=== PATIENT | female | born 1990 ===

== ENCOUNTER 2017-07-31 02:41 | Inpatient (IN) | payer MEDICAID, SELFPAY ==
[2017-07-31 03:20] VITALS: BMI 22.3
--- NOTE | 2017-07-31 03:36 | OBADHP ---
Datetime: 07/31/2017 03:32 Admit Comment, IP Provider: 27-year-old at 35 weeks gestational age presents to OB ED compla ining of contractions. Patient denies any vaginal bleeding or leakage of fluids. Patient reports good movement. No records available for review at this time. Patient reports first deliver y at 29 weeks due to labor. Past medical history none Past surgical history none Medications vitamins No known drug allergies Obstetrical history vaginal delivery at 29 weeks gestational age due to labor Social history no tobacco, drugs, no alcohol Physical exam: Referred physical exam findings Assessment: 27-year-old at 35 weeks gestational age in labor. heart tracing reassuring at this time. Plan: Admit to labor and delivery for management of labor IV fluid hydration IV penicillin G for GBS prophylaxis Betamethasone Discussed plan with patient and all patient questions answered. Pelvic Type - PN: Adequate Extremities - PN: Normal Abdomen - PN: Normal Back - PN: Normal Breast - PN: Normal Lungs - PN: Normal Heart - PN: Normal Thyroid - PN: Normal Neurologic - PN: Normal HEENT - PN: Normal General - PN: Normal FHR - Baseline A Provider: 150s Contraction Comments Provider: q2min Comments, ACOG Physical Exam: Bedside ultrasound: Cephalic presentation Vital Signs Provider: Reviewed; Within Normal Limits IP Chief Complaint: Uterine contractions NICHD Variability Prov Fetus A: Moderate 6-25bpm FHR Category Provider Fetus A: Category I NICHD Decel Fetus A IP Provider: None Dilatation, Provider: 1 Effacement, Provider: 90 Station, Provider: -1 Genitourinary Exam: Normal DTRs - PN: Normal EGA AdmitDate IP: 35.0 IP Adm Impression: , intrauterine ; Active labor; Intact Membranes IP Admit Plan: Admit to unit; Initiate labor protocol
[2017-07-31] MEDS ORDERED: Betamethasone Soluspan 30 mg/5mL Inj Susp IM PRN (03:49)
[2017-07-31] MEDS ORDERED: Lactated Ringer's 1,000 ML IV PRN (03:49)
[2017-07-31] MEDS ORDERED: Penicillin G Potassium 5 MU in Sodium Chloride 0.9% 50 ML IVPB ONE (04:00)
[2017-07-31] MEDS: Lactated Ringer's 1,000 ML IV PRN ×2 (04:00→04:30)
[2017-07-31 04:25] LABS: BASO # 0.1 K/uL (0.0-0.2); BASO % 0.6 % (0.0-2.0); EOS # 0.3 K/uL (0.0-0.7); EOS % 2.4 % (0.0-4.0); HEMATOCRIT 36.5 % (34.0-47.0); LYMPH # 2.3 K/uL (1.0-4.3); LYMPH % 21.8 % (20.0-40.0); MEAN CELL VOLUME 87.4 fl (81.0-99.0); MEAN CORPUSCULAR HEMOGLOBIN 30.7 pg (27.0-31.0); MEAN CORPUSCULAR HGB CONC 35.1 g/dL (33.0-37.0); MEAN PLATELET VOLUME 8.2 fl (7.2-11.7); MONO # 1.2 K/uL (0.0-0.8); MONO % 11.2 % (0.0-10.0); NEUT # 6.9 K/uL (1.8-7.0); NRBC % 0.1 % (0.0-0.0); RED CELL DISTRIBUTION WIDTH 14.2 % (11.5-14.5); WHITE BLOOD COUNT 10.7 K/uL (4.8-10.8)
[2017-07-31] MEDS ORDERED: Lactated Ringer's 1,000 ML IV SCH (04:30)
[2017-07-31 04:32] LABS: RBC URINE 4 /hpf (0-3); URINE BACTERIA RARE (<OCC); URINE BILIRUBIN NEGATIVE (NEGATIVE); URINE BLOOD MODERATE (NEGATIVE); URINE COLOR YELLOW (YELLOW); URINE GLUCOSE (UA) NEG (Normal); URINE KETONE NEGATIVE (NEGATIVE); URINE LEUKOCYTE ESTERASE SMALL Leu/uL (Negative); URINE PROTEIN NEGATIVE (NEGATIVE); URINE UROBILINOGEN 0.2-1.0 mg/dL (0.2-1.0); WBC URINE 4 /hpf (0-5)
[2017-07-31 04:38] LABS: ALKALINE PHOSPHATASE 330 U/L (38-126); ALT/SGPT 201 U/L (9-52); AST/SGOT 141 U/L (14-36); BLOOD UREA NITROGEN 14 mg/dl (7-17); CALCIUM 9.3 mg/dL (8.4-10.2); CARBON DIOXIDE 22 mmol/L (22-30); CHLORIDE 107 mmol/L (98-107); GFR AFRICAN-AMERICAN > 60; GLUCOSE,RANDOM 103 mg/dL (65-105); SODIUM 141 mmol/l (132-148); TOTAL PROTEIN 7.7 G/DL (6.3-8.2)
[2017-07-31] MEDS ORDERED: Fentanyl/Bupivacaine HCl 250 ML EPI ONE (05:04)
[2017-07-31] MEDS ORDERED: Bupivacaine HCl 0.25% PF (10 ml) Inj ONE (07:17)
[2017-07-31] MEDS ORDERED: Lidocaine 1% Inj (20ml) ONE (07:23)
[2017-07-31] MEDS ORDERED: Oxycodone/Acetaminophen 5/325 mg Tab PO PRN ×3 (09:31→13:02)
--- NOTE | 2017-07-31 10:11 | OBDS ---
DELIVERY PERSONNEL Delivery Doctor: Kaylynn Perez MD W[employer] Rack Operator: Antonette Ryan RN /ricki wells rn Anesthetist: meme Resident: jayne guerrero MATERNAL INFORMATION Delivery Anesthesia: Local; Epidural Medications in Delivery: pitocin after placenta Estimated Blood Loss (ml): 200 Placenta Cultured: No/ placenta to pathology Other Maternal Complications: 35 weeks Provider Comments: Normal spontaneous vaginal delivery. Patient delivered viable infant with Apgars of 9 and 9 at one and 5 minutes respectively. d elivered via IRAIS position, loose nuchal cord 1. Laceration repaired, as above. Placenta delivered s pontaneously. Placenta sent for pathology. Cord gases sent. Patient tolerated delivery and repair wel l. No complications. Candy Bar Attendant present at delivery. Estimated blood loss 200 mL LABOR SUMMARY EDC: 09/04/2017 00:00 No. Babies in Womb: 1 Attempted: No LABOR INFORMATION Onset of Labor: 07/30/2017 19:00 Complete Dilatation: 07/31/2017 09:00 Oxytocin: N/A Group B Beta Strep: Not Done Antibiotics # of Doses: pen G 5 MU/PEN G AT 5:08 AM 2.5 08:00 AM Antibiotics Time of Last Dose: 08:00 AM PEN G 2.5 Steroids Given: None MEMBRANES Membranes Rupture Method: Spontaneous Rupture of Membranes: 07/31/2017 07:00 Length of Rupture (hrs): 2.25 Amniotic Fluid Color: Light Meconium Amniotic Fluid Amount: Small Amniotic Fluid Odor: Normal STAGES OF LABOR Stage 1 hrs: 14 Stage 1 min: 0 Stage 2 hrs: 0 Stage 2 min: 15 Stage 3 hrs: 0 Stage 3 min: 4 Total Time in Labor hrs: 14 Total Time in Labor min: 19 VAGINAL DELIVERY Episiotomy: None Laceration Extension: Second Degree Laceration Type: Perineal Laceration Repair Note: Second-degree midline perineal laceration. Area infiltrated with 1% lidocain e. Laceration repaired with 2. 0 repeat without complication. Patient tolerated the repair well. Initial Vag Sponge Count: 15 Final Vag Sponge Count: 15 Initial Vag Sharps Count: 1 Final Vag Sharps Count: 1 Sponge Count Correct: Yes Sharps Count Correct: Yes BABY A INFORMATION Infant Delivery Date/Time: 07/31/2017 09:15 Method of Delivery: Vaginal Born in Route : Yes : N/A Forceps: N/A Vacuum Extraction: N/A Shoulder Dystocia : No SHOULDER DYSTOCIA BABY A Infant Delivery Date/Time: 07/31/2017 09:15 PRESENTATION/POSITION BABY A Presentation: Cephalic Cephalic Presentation: Vertex Vertex Position: Left Occipital Anterior PLACENTA INFORMATION BABY A Placenta Delivery Time : 07/31/2017 09:19 Placenta Method of Delivery: Spontaneous Placenta Status: Delivered INFORMATION BABY A Gestational Age at Delivery: 35.0 Gestational Status: Outcome : Liveborn Infant Condition : Stable Infant Sex: Female IDENTIFICATION/MEDS BABY A ID Band Number: [id number] ID Band Location: Left Leg; Left Arm WEIGHT/LENGTH BABY A Infant Birthweight (gms): 2475 Weight (lb): 5 Weight (oz): 7 CORD INFORMATION BABY A No. Cord Vessels: 3 Nuchal Cord : Around Neck x1, Loose Cord Blood Taken: Yes Banking/Donate Info: NONE Infant Suction: Mouth
[2017-07-31] MEDS: Oxycodone/Acetaminophen 5/325 mg Tab PO PRN ×2 (17:51→22:07)
[2017-08-01 06:11] LABS: HEMATOCRIT 35.2 % (34.0-47.0); MEAN CELL VOLUME 89.1 fl (81.0-99.0); MEAN CORPUSCULAR HGB CONC 33.7 g/dL (33.0-37.0); RED CELL DISTRIBUTION WIDTH 14.4 % (11.5-14.5)
[2017-08-01 06:34] LABS: WHITE BLOOD COUNT 22.5 K/uL (4.8-10.8)
[2017-08-01] MEDS: Oxycodone/Acetaminophen 5/325 mg Tab PO PRN (08:30)
[2017-08-01] MEDS: Prenatal Multivit/Folic Acid/Iron Tab PO SCH (08:31)
[2017-08-01] MEDS ORDERED: Benzocaine/Menthol SPRAY TOP PRN (08:41)
[2017-08-01] MEDS ORDERED: Prenatal Multivit/Folic Acid/Iron Tab PO SCH (09:00)
--- NOTE | 2017-08-01 10:21 | OBPPN ---
Datetime: 08/01/2017 08:58 PP Pain Prov: Within normal limits PP Nausea Prov: Denies PP Flatus Prov: Yes PP BM Prov: No PP Breasts Prov: Not Done PP Heart Prov: Normal PP Lungs Prov: Normal PP Abdomen/Uterus Prov: Normal PP Lochia Prov: Normal PP Vulva/Perineum Prov: Not Done PP CVA Tenderness Prov: Not Done PP Extremities Prov: Normal PP Impression Prov: Normal progression PP Plan Prov: Continue present management PP Progress Note Prov: 27 yo, now s/p NVD on PPD 1. Seen and examined at bedside; no acute e vents overnight. Reports mild pelvic pain that is controlled with pain medications. Out of bed and am bulating, without dizziness. Voiding freely and passing gas. Lochia less than menses. Tolerating PO d iet. Feeding baby via breast/bottle. Denies fevers, chills, nausea/vomiting/diarrhea, chest pain/shor tness of breath, calf pain, lightheadedness. PE: GEN: A_O, resting comfortably in bed, no acute distress Lung: clear to auscultation bilaterally, normal respiratory effort CVS: S1/S2+, RRR Abd: +BS, firm fundus below umbilicus. EXT: no edema, negative David's, calves non-tender. Assessment: 27 yo F, , doing well on PPD 1. Plan: Ibuprofen for pain. Encourage and ambulation. -[id number] Addendum by Dr. Manning: Patient evaluated independently and I agree with the above. Patient is PPD #1, continue orders Vital Signs Provider PP: Reviewed; Within Normal Limits
[2017-08-02] MEDS: Prenatal Multivit/Folic Acid/Iron Tab PO SCH (08:54)
[2017-08-02] MEDS ORDERED: Influenza Vaccine 18yr & older 0.5 ML/45 MCG SYR IM ONE (09:00)
[2017-08-02 18:09] VITALS: BP 123/86; PULSE 80; RESP 18; TEMP 97.8; O2SAT 100
== END 2017-08-02 13:50 | disposition home or self-care (01) | DRG 775 ==
LOC: H.EROB2 02:41 → H.L&D 03:49 → H.OB/GYN 12:43
PROVIDERS: ADMIT Obstetrics & Gynecology; ATTEND Obstetrics & Gynecology
PROC: 10E0XZZ Delivery of Products of Conception, External Approach (ICD-10-PCS; principal; 2017-07-31)
PROC: 0KQM0ZZ Repair Perineum Muscle, Open Approach (ICD-10-PCS; 2017-07-31)
PROC: 4A1HXCZ Monitoring of Products of Conception, Cardiac Rate, External Approach (ICD-10-PCS; 2017-07-31)
DX: O60.14X0 Preterm labor third trimester with preterm delivery third trimester, not applicable or unspecified (principal); O69.81X0 Labor and delivery complicated by cord around neck, without compression, not applicable or unspecified; O70.1 Second degree perineal laceration during delivery; Z37.0 Single live birth; Z3A.35 35 weeks gestation of pregnancy